=== PATIENT | male | born 1955 | race Caucasian/White ===

== ENCOUNTER 2024-09-11 08:13 | Observation (INO) ==
--- NOTE | 2024-09-04 09:27 | Anesthesiology Consultation ---
Date of Service September 04, 2024 Assessment & Plan (1) Encounter for pre-operative examination: Chart Review Chart Review: Acceptable Risk for Surgery and Patient NOT seen in Pre Admission Testing -Infectious Disease screening: Per PAT nursing assessment on 09/03/24. Patient with congestion and runny nose starting 08/29/24 (as of 09/03/24- symptoms resolving). No known infectious disease contacts in past 10 days. No recent travel outside the country. Symptom onset >10 days from DOS, symptoms resolving, patient educated by nurse to call if symptoms persist or get worse- patient can proceed pending symptoms resolved by DOS History Surgery Operation Date: 09/11/24 08:25 Proposed Procedures p TURP (Transurethral Resection of Prostate) - Tristan Santiago MD Height/Weight Height: 6 ft 2 in Weight: 81.647 kg Allergies Allergy/AdvReac Type Severity Reaction Status Date / Time No Known Allergies Allergy Verified 09/03/24 09:46 Medications Home Medications Medication Instructions Recorded Confirmed Last Taken cholecalciferol (vitamin D3) 10 10 mcg PO QAM 03/30/24 09/03/24 Unknown mcg (400 unit) capsule multivitamin (One-A-Day Essential 1 tab PO QAM 03/30/24 09/03/24 Unknown tablet) alfuzosin 10 mg tablet,extended 10 mg PO QAM 09/03/24 09/03/24 Unknown release 24 hr Past Medical History Medical History (Updated 09/04/24 @ 09:26 by Kalina Galeano PA-C) Bacteremia - Admitted to [facility] 07/24/24-07/29/24 due to positive blood cultures and UTI- treated with IV abxs; source likely urinary post prostate biopsy vs bladder obstruction- had two weeks of IV abxs - Per urology visit 08/24/24- recovered from infectious standpoint but still has urinary retention BPH loc w urin obs/LUTS Jennings catheter in place Past Surgical History Surgical History Hx of appendectomy Hx of colonoscopy Hx of right inguinal hernia repair Social History Smoking Status: Never smoker Do You Dip or Chew Tobacco: No (quit 15+ years ago; advised) Hx Alcohol Use: Yes alcohol intake frequency: holidays/special occasions only Hx Substance Use: No substance use type: does not use Testing Laboratory Results 09/02/24= WBC: 8.98 H/H: 14.2/42.5 PLATELETS: 293 SODIUM: 137 POTASSIUM: 4.3 CHLORIDE: 104 CO2: 31.9 BUN: 15.2 CREATININE: 1.01 GLUCOSE: 86 08/13/24= UA: Negative URINE CULTURE: No growth-less than 1000 colonies/ml Electrocardiogram Date: 09/02/24 SR at 77bpm Normal EKG per cardio Chest X-Ray Date: 09/02/24 Findings: + NAD
[2024-09-11] MEDS: LR 15ML/HR IV SCH (08:56)
--- NOTE | 2024-09-11 09:48 | History & Physical Report ---
Date of Service September 11, 2024 Assessment & Plan (1) BPH loc w urin obs/LUTS: Plan BPH with urinary retention Plan for TURP today to try to resolve the retention and improve his chronic voiding issues Risks, benefits, expectations reviewed History of Present Illness Primary Care Provider: Trevor Clark Urinary retention Presenting today for TURP Allergies Allergy/AdvReac Type Severity Reaction Status Date / Time No Known Allergies Allergy Verified 09/11/24 08:39 Home Medications Medication Instructions Recorded Confirmed Type cholecalciferol (vitamin D3) 10 10 mcg PO QAM 03/30/24 09/11/24 History mcg (400 unit) capsule multivitamin (One-A-Day Essential 1 tab PO QAM 03/30/24 09/11/24 History tablet) alfuzosin 10 mg tablet,extended 10 mg PO QAM 09/03/24 09/11/24 History release 24 hr Past Med/Surg History Problem List Encounter for pre-operative examination BPH loc w urin obs/LUTS Elevated PSA Medical History Bacteremia - Admitted to [facility] 07/24/24-07/29/24 due to positive blood cultures and UTI- treated with IV abxs; source likely urinary post prostate biopsy vs bladder obstruction- had two weeks of IV abxs - Per urology visit 08/24/24- recovered from infectious standpoint but still has urinary retention Jennings catheter in place BPH loc w urin obs/LUTS Surgical History Hx of right inguinal hernia repair Hx of appendectomy Hx of colonoscopy Social History Smoking Status: Never smoker Tobacco Type: Smokeless Tobacco (Dip or Chew) Second Hand Exposure: No; Do You Dip or Chew Tobacco: No (quit 15+ years ago; advised); Tobacco Cessation Education Requested by Patient: No Hx Alcohol Use: Yes Hx Substance Use: No Preferred Language: Tuvaluan Communication Ability: Effective Tamper Operator Required: No Beliefs That Will Affect Care: None Current Living Situation: Spouse Other Information That Helps Us Care for You: No Feels Safe at Home: Yes Safety Concerns: Feels Safe At This Time Assistive Devices: Glasses Physical Exam Constitutional: well developed and well nourished Neck: neck nontender Respiratory: normal respiratory effort; no respiratory distress and does not use accessory muscles Cardiovascular: Rate/Rhythm: regular rate Vessels: radial pulses present Extremities: no edema Gastrointestinal (Abdomen): Inspection/Auscultation: abdomen normal to inspection Percussion/Palpation: abdomen soft; abdomen nontender and no guarding Musculoskeletal: Head/Neck/Chest: normocephalic and head atraumatic Extremities: extremities normal to inspection Skin: no rashes and no lesions Trauma: no evidence of skin trauma Neurologic: awake; not obtunded Speech / Cognition: normal speech Motor/Sensory: no tremor Psychiatric: Orientation: alert and oriented x 3 Genitourinary: no CVA tenderness Lymphatic: no lymphadenopathy Results & Data Vital Signs (Past 12 Hours) Vital Signs Temp Pulse Resp BP Pulse Ox O2 Del Method 09/11/24 08:40 36.7 C 70 18 150/88 H 96 Room Air
[2024-09-11] MEDS ORDERED: ePHEDrine sulfate 50 MG/ML AMP IV PRN (09:50)
[2024-09-11] MEDS ORDERED: ATROPINE SULFATE 0.1 MG/ML 10ML SYR IV PRN (09:50)
[2024-09-11] MEDS ORDERED: ONDANSETRON INJ 2 MG/ML 2 ML VIAL IV PRN (09:50)
[2024-09-11] MEDS ORDERED: PROPOFOL IV EMULSION 10 MG/ML 20 ML VIAL IV ONE (10:17)
[2024-09-11] MEDS ORDERED: LIDOCAINE 2% 20 MG/ML 5 ML SYR IV ONE (10:17)
[2024-09-11] MEDS ORDERED: fentaNYL citrate PF 100 MCG/2 ML VIAL ONE (10:18)
[2024-09-11] MEDS ORDERED: MIDAZOLAM HCL 1 MG/ML 2ML VIAL ONE (10:18)
[2024-09-11] MEDS: CIPROFLOXACIN / D5W 400 MG/200 ML BAG IV SCH ×2 (10:48→22:55)
[2024-09-11] MEDS ORDERED: ONDANSETRON INJ 2 MG/ML 2 ML VIAL ONE (11:16)
[2024-09-11] MEDS ORDERED: DEXAMETHASONE SOD INJ 4 MG/ML VIAL ONE (11:16)
[2024-09-11] MEDS ORDERED: PHENYLEPHRINE 100MCG/ML 10ML SYR IV ONE (11:21)
[2024-09-11] MEDS ORDERED: ePHEDrine sulfate 50 MG/5 ML SYR ONE (11:21)
--- NOTE | 2024-09-11 12:01 | Operative Report ---
PG Post Operative Report Pre & Post Diagnosis Operation Date: 09/11/24 10:05 Pre-Op Diagnosis: Benign Prostatic Hyperplasia with Urinary Retention Post-Op Diagnosis: Benign Prostatic Hyperplasia with Urinary Retention I identified the patient and participated in the time-out.: Yes Procedure Operation Date: 09/11/24 10:05 Actual Procedures p Transurethral Resection of Prostate(Not Applicable) - Tristan Santiago MD Surgeon Tristan Santiago MD Master Brewer none Estimated Blood Loss 5 Findings Consistent with Post-Op Diagnosis Specimens Prostate chips for routine pathology Description of Procedure 68-year-old gentleman with urinary retention presents today for TURP. He was identified in the preoperative holding area and appropriate informed consents reviewed and completed. He was transferred to the operating suite. His catheter was removed and he was sterilely prepped and draped in standard fashion. To be in the case I passed a 27 Mongolian resectoscope with 30 degree lens. SPECT revealed a healthy-appearing urethra and an enlarged prostate with lateral lobe obstruction and intravesical intrusion around the bladder neck. The bladder was fully inspected. Ureteral orifices were identified in orthotopic position. There were no mucosal abnormalities around the bladder aside from mild catheter related cystitis. He had some hyperemia through the prostate which is likely a reaction to the catheter. I then began my resection by utilizing a loop electrode and resecting the intravesical portion of the prostate first. I then proceeded to resect the left lateral lobe and the right lateral lobe. He had redundant posterior tissue as well as hanging and redundant anterior tissue. I trimmed those areas. I then evacuated all chips out of the bladder and passed them off the table as a specimen. I used a button electrode to smooth the remaining aspect of the prostatic fossa. Hemostasis was excellent. A 22 Mongolian Jennings catheter was inserted with 30 cc of water in the balloon. He was reversed of anesthesia and taken to the recovery room in stable condition. There were no complications. I attest to the content of the Intraoperative Record and any orders documented therein. Any exceptions are noted below.
[2024-09-11] MEDS: fentaNYL citrate PF 100 MCG/2 ML VIAL IV PRN (12:20)
--- NOTE | 2024-09-11 13:06 | Anesthesiology Progress Note ---
Date of Service September 11, 2024 Anesthesia Post Procedure Vital Signs Vital Signs: Temp Pulse Pulse Resp BP Pulse Ox O2 Del Method 09/11/24 13:00 66 12 128/77 97 Nasal Cannula 09/11/24 12:50 36.4 C L 64 12 137/83 99 Nasal Cannula 09/11/24 12:40 65 13 121/76 97 Nasal Cannula 09/11/24 12:30 66 19 120/72 97 Nasal Cannula 09/11/24 12:20 68 20 126/76 99 Nasal Cannula 09/11/24 12:10 36 C L 73 22 143/88 H 98 Nasal Cannula 09/11/24 08:40 36.7 C 70 18 150/88 H 96 Room Air O2 Flow Rate 09/11/24 13:00 2 09/11/24 12:50 2 09/11/24 12:40 2 09/11/24 12:30 2 09/11/24 12:20 4 09/11/24 12:10 4 09/11/24 08:40 Pain Intensity Penis: Pain Intensity: 3 Lower Abdomen: Pain Intensity: 3 Transfer of Care Handoff Completed per policy Notes Mental Status: alert / awake / arousable and participated in evaluation Patient Amnestic to Procedure: Yes Nausea / Vomiting: adequately controlled Pain: adequately controlled Airway Patency, RR, SpO2: stable & adequate BP & HR: stable & adequate Hydration State: stable & adequate Anesthetic Complications: no major complications apparent and Pt Satisfied with anesthetic care
--- NOTE | 2024-09-11 15:10 | Anesthesiology Progress Note ---
Date of Service September 11, 2024 Anesthesia Post Procedure Vital Signs Vital Signs: Temp Pulse Pulse Resp BP Pulse Ox O2 Del Method 09/11/24 15:00 36.6 C 73 23 138/93 95 Room Air 09/11/24 14:30 66 13 127/70 95 Room Air 09/11/24 14:00 72 20 127/75 97 Room Air 09/11/24 13:45 68 14 122/73 97 Nasal Cannula 09/11/24 13:30 65 12 120/73 98 Nasal Cannula 09/11/24 13:15 69 16 127/73 97 Nasal Cannula 09/11/24 13:00 66 12 128/77 97 Nasal Cannula 09/11/24 12:50 36.4 C L 64 12 137/83 99 Nasal Cannula 09/11/24 12:40 65 13 121/76 97 Nasal Cannula 09/11/24 12:30 66 19 120/72 97 Nasal Cannula 09/11/24 12:20 68 20 126/76 99 Nasal Cannula 09/11/24 12:10 36 C L 73 22 143/88 H 98 Nasal Cannula 09/11/24 08:40 36.7 C 70 18 150/88 H 96 Room Air O2 Flow Rate 09/11/24 15:00 09/11/24 14:30 09/11/24 14:00 09/11/24 13:45 2 09/11/24 13:30 2 09/11/24 13:15 2 09/11/24 13:00 2 09/11/24 12:50 2 09/11/24 12:40 2 09/11/24 12:30 2 09/11/24 12:20 4 09/11/24 12:10 4 09/11/24 08:40 Pain Intensity Penis: Pain Intensity: 3 Lower Abdomen: Pain Intensity: 3 Transfer of Care Handoff Completed per policy Notes Mental Status: alert / awake / arousable and participated in evaluation Patient Amnestic to Procedure: Yes Nausea / Vomiting: adequately controlled Pain: adequately controlled Airway Patency, RR, SpO2: stable & adequate BP & HR: stable & adequate Hydration State: stable & adequate Anesthetic Complications: no major complications apparent and Pt Satisfied with anesthetic care
[2024-09-11] MEDS: SODIUM CHLORIDE 0.9% 1,000 ML IV SCH (16:30)
[2024-09-11] MEDS: PHENAZOPYRIDINE HCL 100 MG TAB PO PRN (17:25)
[2024-09-11] MEDS: PHENAZOPYRIDINE HCL 200 MG TAB PO STA (17:34)
[2024-09-11] MEDS: ACETAMINOPHEN 325 MG TAB PO PRN (19:59)
[2024-09-12 06:36] LABS: Hematocrit (blood only) 35.4 % (42.0-52.0); Hemoglobin 12.1 g/dl (14.0-18.0); Mean Corpuscular Hemoglobin 28.6 pg (25.0-34.0); Mean Corpuscular Hgb Conc 34.2 g/dL (32.0-36.0); Mean Corpuscular Volume 83.7 fL (80.0-100.0); Mean Platelet Volume 9.5 fL (9.4-12.4); Platelet Count 265 K/uL (130-400); RDW Coefficient of Variation 13.6 % (11.5-14.5); RDW Standard Deviation 41.8 fL (36.4-46.3); Red Blood Count 4.23 M/uL (4.70-6.10)
[2024-09-12 06:41] LABS: BUN Creatinine Ratio 20.4 (10-20); Calcium 8.3 mg/dl (8.6-10.3); Creatinine Clr Calc Pharmacy 87.7 ml/min; Potassium 4.1 mmol/L (3.5-5.1)
[2024-09-12 07:43] VITALS: BP 125/78; PULSE 66; RESP 18; TEMP 97.7; O2SAT 95
--- NOTE | 2024-09-12 08:42 | Urology Progress Note ---
Date of Service September 12, 2024 Assessment & Plan (1) BPH loc w urin obs/LUTS: Plan: Recovering appropriately s/p TURP Will plan on voiding trial this morning. Assuming he is able to void, he will be discharged home without his catheter. If he is unable to void, we will plan to replace catheter and he can still go home with a plan for voiding trial later this week in the urology office. Admission and Anticipated Discharge Date Admission Date: September 11, 2024 Subjective Feeling well this morning Tolerating a diet with no nausea or vomiting Has been ambulating No issues with Jennings overnight Physical Exam Physical Exam: Well-appearing, NAD Jennings catheter in place draining clear yellow urine, no clots or blood in the bag. Results & Data Vital Signs (Past 12 Hours) Vital Signs Temp Pulse Resp BP Pulse Ox O2 Del Method 09/12/24 07:42 36.5 C 66 18 125/78 95 Room Air 09/12/24 02:56 36.3 C L 63 16 116/65 97 Room Air 09/12/24 00:06 36.6 C 75 16 113/68 95 Room Air PG Care Time/CCT Total # of Minutes Spent Total Time Spent with Patient: Total time spent is greater than 50% in coordination of care (as documented) at patient's floor/unit and/or counseling patient: Coding Level of Care Code 46221 SUB INP/OBS CARE 25MIN Diagnoses BPH loc w urin obs/LUTS N40.1
--- NOTE | 2024-09-12 10:30 | Discharge Summary ---
Date of Service September 12, 2024 Admission HPI Per Admitting Provider This is a 68-year-old male followed by urology for urinary retention. He presented to the OR on 09/11/2024 for a TURP and was admitted postoperatively in good condition. Admission Exam Per Admitting Provider Constitutional well developed and well nourished Neck neck nontender Respiratory normal respiratory effort; no respiratory distress and does not use accessory muscles Cardiovascular Rate/Rhythm: regular rate Vessels: radial pulses present Extremities: no edema Gastrointestinal (Abdomen) Inspection/Auscultation: abdomen normal to inspection Percussion/Palpation: abdomen soft; abdomen nontender and no guarding Musculoskeletal Head/Neck/Chest: normocephalic and head atraumatic Extremities: extremities normal to inspection Skin no rashes and no lesions Trauma: no evidence of skin trauma Neurologic awake; not obtunded Speech / Cognition: normal speech Motor/Sensory: no tremor Psychiatric Orientation: alert and oriented x 3 Genitourinary no CVA tenderness Lymphatic no lymphadenopathy Principal Diagnosis Urinary retention, BPH Discharge Exam Well-appearing, NAD Jennings catheter have been in position draining clear yellow urine, catheter was removed for voiding trial and he was able to void. Discharge Data Allergies Allergy/AdvReac Type Severity Reaction Status Date / Time No Known Allergies Allergy Verified 09/11/24 08:39 Procedures Performed Operation Date: 09/11/24 10:05 Actual Procedures p Transurethral Resection of Prostate(Not Applicable) - Tristan Santiago MD Hospital Course (1) BPH loc w urin obs/LUTS: Patient underwent TURP on 09/11/2024. On 09/12 a voiding trial was performed and he was able to void. He was discharged home in good condition. Total Time Total Time Spent Total Time Spent (In Minutes): 15 Discharge Plan Discharge Items Patient Disposition: Home - Self-Care Reason For Visit: Benign Prostatic Hyperplasia with Lower Urinary Tr Discharge Diagnosis: urinary retention Activity: Resume your previous activity Lifting: Gradually increase as tolerated Bathing: No limitations Sexual Activity: When tolerated Exercise/Sports: Gradually increase as tolerated Driving/Machine Use: Resume 1 day after discharge Non-emergency contact: Urologist Call non-emergency contact if: you have any medication questions, your pain is concerning for you, you have a fever and your temperature is above 101.5 Follow-up/Referrals: Trevor Clark [Primary Care Provider] - Diet: Regular Addtl Attending Provider Instructions: Please continue your previous diet, take all medications as prescribed and keep follow-ups as scheduled. Please call our office at [phone] with any questions, concerns or need to reschedule appointments for any reason. We are happy to assist you. While catheter is in place, please wash with warm soapy water and a fresh washcloth twice a day with mild bar soap (Dove, Dial, etc.). Your nursing visit appointment to have your catheter removed should already be made, if you have any question regarding this, please call our office. Complete antibiotics as prescribed, if indicated. It is okay to take AZO (available over the counter) as needed for a few days to relieve burning with urination. This may cause your urine or feces to turn an orangish-color. This is expected. The only exception is if you have been prescribed Pyridium (phenazopyridine), this is the same medication and should not take AZO be taken in addition to prescription version. Please do not drive, drink alcohol or operate machinery while taking prescription pain medication. We recommend continuing a stool softener (i.e. Colace) to prevent constipation/straining for at least two weeks after your procedure. Some blood is to be expected in your urine as you heal, you may even see recurrences of blood in your urine for up to 4-6 months after your procedure. Drink plenty of fluids, avoid sexual or strenuous exercise and do not lift >25 pounds until your follow-up. Call [facility] at [phone] promptly if you experience: Fever of 101F or greater Pain thats not controlled with medicine Trouble urinating or inability to urinate Dark, bloody urine for more than 12 hours Pending Studies at Discharge: No Stand-Alone Forms: [employer], Smoking Cessation Medications and DC Order Prescriptions: New ciprofloxacin HCl [Cipro] 500 mg tablet 500 mg PO BID Qty: 6 0RF Continued multivitamin [One-A-Day Essential] Tablet 1 tab PO QAM cholecalciferol (vitamin D3) 10 mcg (400 unit) capsule 10 mcg PO QAM Discontinued alfuzosin 10 mg tablet extended release 24 hr 10 mg PO QAM Rx Instructions: administer after the same meal each day Discharge Orders: Discharge Order (Routine); Ordered 09/12/24 Ordered By: Gavino Solares Admission Data Admit Date/Time: 09/11/24 11:59 Attending Provider: Tristan Santiago Admit Provider: Tristan Santiago Primary Care Provider: Trevor Clark Other Interventions: Discharge Summary Assessment (RN) Last Done: 09/12/24 10:01 Coding Level of Care Code 91198 IN/OBS DISCH 30 MIN/LESS Diagnoses BPH loc w urin obs/LUTS N40.1
== END 2024-09-12 10:30 | disposition home or self-care (01) ==
LOC: ASU 08:13 → PACUINP 08:13 → 3E 16:15